=== PATIENT | female | born 1965 | race Caucasian/White ===

== ENCOUNTER 2021-12-13 10:43 | Emergency (ER) | payer OTHER, SELFPAY ==
[2021-12-13] VITALS (12 sets, daily range): BP systolic 142–197; BP diastolic 82–99; PULSE 74–151; RESP 14–20; TEMP 36.8; O2SAT 95–100; BMI 20.9
--- NOTE | 2021-12-13 | DI.RAD.S_ITS ---
PROCEDURE: XR KNEE LT 3V INDICATIONS: FALL TECHNIQUE: 3 views of the knee were acquired. COMPARISON: None. FINDINGS: Bones: Small cortical defect noted involving the medial proximal tibia which may reflect a avulsion fracture. Soft tissues: No joint effusion. No suspicious soft tissue calcifications. IMPRESSION: Possible small cortical avulsion fracture in the medial proximal tibial cortex could be correlated with point tenderness and/or MRI if clinically consistent. Approved by: Artis Fowler M.D. on 12/13/2021 at 11:30
--- NOTE | 2021-12-13 11:25 | DI.RAD.S_ITS ---
PROCEDURE: XR RIBS RT MIN 3V W CXR 1V INDICATIONS: fall TECHNIQUE: Two views of the right ribs were acquired, along with a single view chest. COMPARISON: None. FINDINGS: Surgical changes and devices: None. Bones and chest wall: Nondisplaced fractures noted through the right lateral 10th, 11th and 12th ribs. No suspicious bony lesions. Overlying soft tissues appear unremarkable. Calcified breast prosthesis noted bilaterally. Lungs and pleura: There is hyperinflation and chronic interstitial changes without focal infiltrate, pleural effusion or pneumothorax. Mediastinum: Mediastinal contours appear normal. Heart size is normal. IMPRESSION: 1. Nondisplaced right 10th through 12th rib fractures. No pneumothorax Approved by: Artis Fowler M.D. on 12/13/2021 at 11:38
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
--- NOTE | 2021-12-13 12:10 | DI.CT.S_ITS ---
PROCEDURE: CT CHEST ABD PEL W CON INDICATIONS: trauma TECHNIQUE: After the administration of intravenous contrast, 5 mm thick sections acquired from the lung apices to the symphysis. 2.5 mm thick coronal and sagittal reformats were acquired. Additional 7 mm thick coronal maximum intensity projection (MIP) reformats acquired through the lungs. Optional 10-minute delayed imaging may be performed from the kidneys to the bladder. For radiation dose reduction, the following was used: automated exposure control, adjustment of mA and/or kV according to patient size. COMPARISON: None. FINDINGS: Image quality: Excellent. CHEST: Lungs: No pulmonary contusions or lacerations. No acute airspace opacities. Scattered atelectasis and scarring in posterior and lateral periphery of bilateral lower lobes are seen. Dependent atelectasis in posterior aspect of bilateral upper lobes are also noted. No pneumothorax or hemothorax. Central and peripheral airways appear patent and normal in caliber. Mediastinum: No mediastinal hematomas. Heart size is normal. No pericardial effusion. Thoracic aorta and pulmonary arteries demonstrate normal size and enhancement. No mediastinal or hilar adenopathy. Esophagus is normal in caliber. No hiatal hernia. Chest wall: No rib fractures. No subcutaneous emphysema. No axillary or supraclavicular adenopathy. Thyroid gland is within normal limits. Bilateral breast implants are grossly intact. ABDOMEN: Solid organs: Liver is normal in size and enhancement, without lacerations. 1.1 cm well-circumscribed hypodensity in left hepatic lobe lateral segment is seen and likely represent hepatic cyst. Gallbladder is within normal limits Biliary system is non-dilated. Pancreas enh ances normally, without transection. Spleen is normal in size and enhancement, without lacerations. No adrenal hematomas. Both kidneys enhance normally, without hydronephrosis or lacerations. 5 mm nonobstructing stone is seen in midpole of left kidney. Peritoneum and bowel: No free fluid or air. Unenhanced bowel loops demonstrate normal wall thickness and caliber. Moderate fecal stasis throughout the colon is seen. Mild sigmoid diverticulosis is noted without colonic wall thickening or mesenteric fat stranding. Nodes and vessels: No retroperitoneal or mesenteric adenopathy. Aorta and inferior vena cava are normal in size and enhancement. Miscellaneous: No ventral hernias. PELVIS: Genitourinary: Bladder wall thickness is normal. Miscellaneous: No inguinal hernias or adenopathy. Bones: Pelvic ring and hip joints appear intact. No vertebral compression fractures. IMPRESSION: 1. No acute solid organ injury is seen in chest, abdomen or pelvis. 2. No peritoneal free fluid or free air. No bowel obstruction. No abnormal bowel wall thickening. Sigmoid diverticulosis without evidence of acute diverticulitis. [id number] constipation. 3. Dependent atelectasis in posterior and lateral periphery of bilateral lung tyson. No focal infiltrate, pleural effusion or pneumothorax. Airway is patent. 4. No gross acute rib fractures. No fracture or dislocation is seen in bony pelvis. No compression fracture or spondylolisthesis in thoracic and lumbar spine. 5. Bilateral breast implants are intact. Dictated by: Skyler Espinoza M.D. on 12/13/2021 at 13:19 Approved by: Skyler Espinoza M.D. on 12/13/2021 at 13:45
--- NOTE | 2021-12-13 12:40 | DI.CT.S_ITS ---
PROCEDURE: CT HEAD/BRAIN WO CON INDICATIONS: trauma w/ loc TECHNIQUE: Noncontrast 4.5 mm thick angled axial sections acquired from the foramen magnum to the vertex, with coronal and sagittal reformats. For radiation dose reduction, the following was used: automated exposure control, adjustment of mA and/or kV according to patient size. COMPARISON: None. FINDINGS: Image quality: Excellent. CSF spaces: Basal cisterns are patent. No extra-axial fluid collections. Ventricles are normal in size and shape. Brain: No midline shift. No intracranial masses or hemorrhage. Tineo-white matter interface is normal. Skull and face: Calvarium and visualized facial bones are intact, without suspicious lesions. Sinuses: Visualized sinuses and mastoids are clear. IMPRESSION: No CT evidence of acute intracranial abnormalities. No acute skull fracture. Dictated by: Skyler Espinoza M.D. on 12/13/2021 at 13:08 Approved by: Skyler Espinoza M.D. on 12/13/2021 at 13:08
[2021-12-13] MEDS: SODIUM CHLORIDE 0.9% 1,000 ML 1000 ML IV (12:48)
[2021-12-13] MEDS: HYDROMORPHONE 0.5 MG INJ IV (12:49)
[2021-12-13] MEDS: ONDANSETRON 4 MG/2 ML INJ IV (12:49)
--- NOTE | 2021-12-13 12:57 | PC.NURSE ---
1200 Patient was up with EDUCATIONAL ADVISOR's to the bathroom when she reports light-headedness. They sat her down in recliner chair and laid her bed back. SHe became pale and nauseous. Placed on housekeeping attendant. Transferred her to a wheelchair and to [address] Leach.
[2021-12-13 12:59] LABS: Add Manual Diff / Slide Review NO; Basophils Absolute Auto 0 /uL (0-100); Basophils Percent Auto 0.3 % (0-2); Eosinophils Absolute Auto 0 /uL (0-450); Eosinophils Percent Auto 0.4 % (2-4); Hematocrit 39.4 % (36-46); Hemoglobin 13.2 g/dL (12.0-16.0); Lymphocytes Absolute Auto 1100 /uL (1100-4500); Lymphocytes Percent Auto 9.1 % (25-40); Mean Corpuscular HGB Conc 33.6 % (30-36); Mean Corpuscular Hemoglobin 30.3 PG (26-34); Mean Corpuscular Volume 90.3 fL (80-100); Monocytes Absolute Auto 1000 /uL (0-900); Monocytes Percent Auto 7.8 % (3-14); Neutrophils Absolute Auto 10400 /uL (1500-7000); Neutrophils Percent Auto 82.4 % (50-75); Platelet Count 308 X10^3/uL (150-400); Red Blood Cell Count 4.36 X10^6/uL (4.0-5.2); Red Cell Distribution Width 13.3 % (11.6-14.8); White Blood Cell Count 12.6 X10^3/uL (4.5-11.0)
[2021-12-13 13:12] LABS: COVID19 -Nasal RAPID Negative (Negative)
[2021-12-13 13:19] LABS: Alanine Aminotransferase 15 IU/L (<35); Albumin 4.3 g/dL (3.5-5.0); Albumin Globulin Ratio 1.7 (1.0-2.8); Alkaline Phosphatase 91 U/L (38-126); Aspartate Aminotransferase 29 IU/L (14-36); BUN Creatinine Ratio 22.4 (6-22); Bilirubin Total 0.6 mg/dL (0.2-1.3); Blood Urea Nitrogen 22 mg/dL (7-17); Carbon Dioxide 27 mmol/L (22-32); Chloride 105 mmol/L (98-107); Estimated Glomerular Filt Rate > 60 mL/min (>60); Globulin 2.6 g/dL (1.7-4.1); Glucose 126 mg/dL (70-100); HEMOLYSIS < 15 (0-50); Potassium 3.3 mmol/L (3.4-5.1); Sodium 138 mmol/L (137-145); Total Protein 6.9 g/dL (6.3-8.2)
[2021-12-13 13:36] LABS: HCG Quantitative /Beta subunit < 2.4 mIU/mL
[2021-12-13 14:01] LABS: Bacteria Urine None Seen; Culture Indicated Urine Cult Not Indicated; RBC Urine None Seen (0-5/HPF); Urine Comments Microscopic Normal; WBC Urine None Seen (0-5/HPF)
[2021-12-13] MEDS: OXYCODONE/APAP 5/325 PREPACK 1 BOTTLE MISC (15:19)
[2021-12-13] MEDS: KETOROLAC 30 MG/ML VIAL 15 MG IV (15:19)
== END 2021-12-13 15:35 | disposition home or self-care (01) ==
PROVIDERS: Nurse Practitioner Critical Care Medicine; Emergency Provider Emergency Medicine
DX: S22.41XA Multiple fractures of ribs, right side, initial encounter for closed fracture (principal); S89.82XA Other specified injuries of left lower leg, initial encounter; I10 Essential (primary) hypertension; M54.50 Low back pain, unspecified; W19.XXXA Unspecified fall, initial encounter; Z20.822 Contact with and (suspected) exposure to COVID-19
CPT/HCPCS: 36415; 70450; 71101; 71260; 73562; 74177; 80053; 81003; 81015; 84702; 85025; 86850; 86900; 86901; 87635; 96361; 96374; 96375; 99284; C9803; J1170; J1885; J2405